=== PATIENT | male | born 1940 | race Caucasian/White ===

== ENCOUNTER → 2019-11-10 | Outpatient (CLI) | payer MEDICARE, BC ==
--- NOTE | 2019-11-10 12:57 | CT ---
EXAMINATION TYPE: CT abdomen pelvis w con DATE OF EXAM: 11/10/2019 COMPARISON: NONE HISTORY: 79-year-old male recent diagnosis of prostate CA TECHNIQUE: Contiguous axial scanning of the abdomen and pelvis following administration of 100 ml Iso angus 300 IV contrast. Delayed images through the kidneys and coronal/sagittal reconstructions perform ed. CT DLP: 1958 mGycm Automated exposure control for dose reduction was used. FINDINGS: Heart borderline enlarged without pericardial effusion. Scattered coronary artery calcifications are present. Dependent atelectasis in the visualized lung bases with mild emphysematous change. No pleural effusio n. Liver mildly enlarged at 19.2 cm. There may be underlying fatty infiltration. 4 hypodense hepatic les ions are present, the largest in the left liver lobe measure up to 2.1 cm and are compatible with cys ts. The other 2 are too small fracture at CT characterization but also likely represent cysts. Portal venous system is patent. No biliary ductal dilatation. Small 3.0 cm diverticulum projecting superior ly from the third portion of the duodenum into the pancreatic head region. Numerous small gallstones are seen layering in the collapsed gallbladder lumen. Mild diffuse thickening of the left adrenal gland without discrete nodularity. Spleen mildly enlarged at 14.7 cm as measured on axial series. Exophytic 6.1 cm left renal cyst. 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 1.2 cm cortical hypodensity medial upper pole right kidney too small for accurate CT characterization , likely cyst. Pancreas within normal limits. No dilated small bowel, free fluid, or free air. Small fatty periumbilical hernia. There is some focal soft tissue thickening at the ileocecal valve region, axial image 62 and 63, sagi ttal image 13, and coronal image 42. Direct visualization recommended to exclude neoplasm. Adjacent enlarged right lower quadrant mesenteric lymph node measuring 1.2 cm along with some cluster ed nonenlarged mesenteric lymph nodes. No retroperitoneal lymphadenopathy. Slightly redundant sigmoid colon. Left-sided clonic diverticulosis, greatest in the sigmoid colon. Ectatic infrarenal abdominal aorta and 2.8 cm an ectatic right and left common iliac arteries and 1.9 and 1.5 cm, respectively. Scattered [id number] atherosclerotic calcifications are present. Moderate circumferential bladder wall thickening. Prostate gland enlargement 5.7 mm wide. Patulous bi lateral inguinal canals. No abnormal fluid collection in the pelvis or pelvic lymphadenopathy. Bones: Mild degenerative changes at the hips and moderate degenerative disc disease and facet arthrop athy mid to lower lumbar spine. No osseous destructive process. No suspicious sclerotic lesion seen. IMPRESSION: 1. PROSTATOMEGALY OF 5.7 CM WIDE. KNOWN UNDERLYING PROSTATE CANCER IS NOT WELL DEMONSTRATED BY CT. 2. MODERATE CIRCUMFERENTIAL BLADDER WALL THICKENING COULD REPRESENT CHRONIC BLADDER WALL HYPERTROPHY OR CYSTITIS. CLINICALLY CORRELATE. 3. FOCAL SOFT TISSUE THICKENING AT THE ILEOCECAL VALVE REGION AND SOME CLUSTERED LYMPH NODES IN THE R IGHT LOWER QUADRANT MEASURING UP TO 1.2 CM. DIRECT VISUALIZATION RECOMMENDED TO EXCLUDE CECAL NEOPLAS M. A REGIONAL COLITIS WITH REACTIVE LYMPHADENOPATHY IS THE ALTERNATIVE CONSIDERATION. 4. OTHERWISE, NO SUSPICIOUS PELVIC OR RETROPERITONEAL LYMPHADENOPATHY TO SUGGEST METASTATIC PROSTATE CANCER. 5. INCIDENTAL: SIGMOID DIVERTICULOSIS, MILD HEPATOSPLENOMEGALY, CHOLELITHIASIS. COPD.
--- NOTE | 2019-11-10 21:27 | NM ---
EXAMINATION TYPE: NM bone scan whole body DATE OF EXAM: 11/10/2019 COMPARISON: Correlation CT same day HISTORY: 79-year-old male C61, prostate cancer TECHNIQUE: Delayed whole-body scanning was performed following the injection of 23 mCi Tc 99m MDP. I mages acquired 3 hours post injection. FINDINGS: Increased activity along the right lateral aspect of the mid lumbar spine seems to correspond to a pr ominent inferior endplate Schmorl's node of L3 vertebral body on CT. Increased activity along the right lateral margin at T12 seems to correspond to lateral bridging endp late spondylosis. A couple additional foci of activity along the posterior elements of the mid thoracic spine also be d egenerative in etiology. Degenerative activity at the sternoclavicular joints, bilateral first rib ends, and shoulders. IMPRESSION: 1. Increased activity along the right mid lumbar spine seems to correspond to a prominent endplate Sc hmorl's node. 2. Activity along the right lateral aspect of T12 seems to correspond to bridging lateral endplate sp ondylosis. 3. A couple foci of increased activity mid thoracic spine may also be on a degenerative basis but are indeterminate. Correlate as to the level of PSA elevation. If indicated, MRI thoracic spine with the addition of T1 in and out of phase sagittal sequence can be performed to further evaluate.
== END | disposition home or self-care (01) ==
LOC: RADNMMAIN 10:24
PROVIDERS: ATTEND Urology
DX: N40.0 Benign prostatic hyperplasia without lower urinary tract symptoms (principal); N32.89 Other specified disorders of bladder; M79.89 Other specified soft tissue disorders; K50.10 Crohn's disease of large intestine without complications; R59.1 Generalized enlarged lymph nodes; C61 Malignant neoplasm of prostate
CPT/HCPCS: 82565; 84520; 74177; 36415; 78306; A9503; Q9967

== ENCOUNTER → 2020-03-08 | Outpatient (CLI) | payer MEDICARE, BC ==
[2020-03-08 11:55] LABS: Basophils % (A) 1 %; Eosinophils # (A) 0.1 k/uL (0-0.7); Eosinophils % (A) 3 %; HCT 40.2 % (39.0-53.0); HGB 13.3 gm/dL (13.0-17.5); Lymphocytes # (A) 1.1 k/uL (1.0-4.8); Lymphocytes % (A) 23 %; MCH 31.5 pg (25.0-35.0); MCHC 33.2 g/dL (31.0-37.0); Mean Platelet Volume 7.9; Monocytes # (A) 0.4 k/uL (0-1.0); Monocytes % (A) 7 %; Neutrophils # (A) 3.2 k/uL (1.3-7.7); Neutrophils % (A) 64 %; Platelet Count 121 k/uL (150-450); RBC 4.23 m/uL (4.30-5.90); RDW 14.3 % (11.5-15.5)
[2020-03-08 12:03] LABS: Calcium 9.4 mg/dL (8.4-10.2); Potassium 4.6 mmol/L (3.5-5.1)
== END | disposition home or self-care (01) ==
LOC: LABPAT 10:21
PROVIDERS: ATTEND Urology
DX: Z01.812 Encounter for preprocedural laboratory examination (principal); C61 Malignant neoplasm of prostate
CPT/HCPCS: 36415; 80048; 85025

== ENCOUNTER 2020-03-14 09:38 | Day surgery (SDC) | payer MEDICARE, BC ==
[2020-03-08 16:10] VITALS: BMI 31.4
--- NOTE | 2020-03-13 18:13 | P.GSHP ---
History of Present Illness H&P Date: 03/13/20 Chief Complaint: Prostate cancer The patient is a 79-year-old male whose PSA has risen from 5.66 in 07/06 to 10.63 in 07/07 and most recently 14.1 in 09/08. TRUS with biopsies on 11/02/2019 showed a prostate volume of 65 cc. No palpable or sonographic abnormalities were noted. Prostate biopsies showed evidence of [place] score 4+3, 4+4 and 4+5 cancer in the right lobe and 3+4 and 4+4 cancer in the left lobe. Bone scan and 11/10/2019 showed no definite evidence of metastatic disease. CT scan of the abdomen and pelvis on the same day also showed no abnormality other than prostatic enlargement and some thickening in the region of the cecum. Subsequent colonoscopy showed no abnormality. Treatment options were reviewed with the patient including further observation and close follow-up versus a combination of androgen deprivation therapy and external beam radiation therapy. The patient has elected to proceed with a combination of androgen deprivation therapy and external beam radiation therapy for his clinical stage [id number] disease. He was started on Firmagon on 01/19/2020. The patient discussed SpaceOAR placement with Dr. Waldron to reduce the potential for rectal toxicity and the patient is admitted for placement of this. The patient has no history of gross hematuria or rectal bleeding. He usually voids every 2-4 hours during the day and once at night. He has no history of urinary tract infection. - Constitutional Constitutional: Denies chronic pain, Denies fever - EENT Ears, nose, mouth and throat: Reports vertigo - Cardiovascular Cardiovascular: Denies chest pain, Denies shortness of breath, Denies syncope - Respiratory Respiratory: Denies cough - Gastrointestinal Gastrointestinal: Denies abdominal pain, Denies diarrhea - Genitourinary (Male) Genitourinary: Reports as per HPI Past Medical History Past Medical History: COPD, GERD/Reflux, Hypertension, Mitral Valve Prolapse (MVP), Osteoarthritis (OA) Additional Past Medical History / Comment(s): Sleep apnea, history of mitral valve prolapse History of Any Multi-Drug Resistant Organisms: None Reported Past Surgical History: Appendectomy, Hernia Repair (Umbilical) Additional Past Surgical History / Comment(s): Gasper Cataract Removal Past Anesthesia/Blood Transfusion Reactions: No Reported Reaction Past Psychological History: No Psychological Hx Reported Smoking Status: Never smoker Past Alcohol Use History: None Reported Past Drug Use History: None Reported - Past Family History Mother Family Medical History: Cancer (Father with lung cancer, mother and aunt with colon cancer) Father Family Medical History: Cancer Sister(s) Family Medical History: Cancer Medications and Allergies Home Medications Medication Instructions Recorded Confirmed Type Albuterol Sulfate [Proair Hfa] 1 - 2 puff INHALATION Q6HR PRN 03/08/20 03/08/20 History Allopurinol [Zyloprim] 300 mg PO DIRECTED 03/08/20 03/08/20 History Aspirin [Adult Low Dose Aspirin EC] 81 mg PO QAM 03/08/20 03/08/20 History Ferrous Sulfate [Feosol] 325 mg PO DIRECTED 03/08/20 03/08/20 History Metoprolol Tartrate 25 mg PO QAM 03/08/20 03/08/20 History Minocycline [Minocin] 50 mg PO Q12HR 03/08/20 03/08/20 History Omeprazole 20 mg PO QAM 03/08/20 03/08/20 History Vit C/E/Zn/Coppr/Lutein/Zeaxan 1 each PO BID 03/08/20 03/08/20 History [Preservision Areds 2 Softgel] lisinopriL 20 mg PO QAM 03/08/20 03/08/20 History Allergies Allergy/AdvReac Type Severity Reaction Status Date / Time levofloxacin [From Levaquin] Allergy Confusion Verified 03/08/20 15:58 Surgical - Exam - General well developed, well nourished, no distress, obese - ENT no hearing loss - Neck no masses, no lymphadectomy - Respiratory normal respiratory effort - Abdomen Abdomen: soft, no organomegaly - Genitourinary normal penis with no external lesions, testicles non-tender - Rectum Rectum: normal sphincter tone, other (Prostate 2+ enlarged and benign to palpation) Assessment and Plan (1) Prostate cancer Narrative/Plan: The patient will undergo transperineal SpaceOAR placement under general anesthesia performed by . He is aware of the risks which include anesthesia, bleeding, infection and temporary difficulty voiding. Status: Acute Code(s): C61 - MALIGNANT NEOPLASM OF PROSTATE SNOMED Code(s): 212620886
[~2020-03-14 09:38] MED LIST: DEXAMETHASONE SOD PHOSPHATE 10 MG/ML 1 ML VIAL IV ONE; HYDROmorphone 0.5 MG/0.5 ML SYRINGE IVP PRN; LACTATED RINGERS 1,000 ML IV SCH; LIDOCAINE 1% (10MG/ML) FOR IV START INTRADERMA PRN; ONDANSETRON 4 MG/2 ML VIAL IVP ONE
[2020-03-14] MEDS ORDERED: METOPROLOL TARTRATE 25 MG TAB PO STA (10:59)
[2020-03-14] MEDS ORDERED: ONDANSETRON 4 MG/2 ML VIAL ONE (11:13)
[2020-03-14 11:19] VITALS: RESP 16
[2020-03-14] MEDS ORDERED: MIDAZOLAM 2 MG/2 ML VIAL ONE (12:09)
[2020-03-14] MEDS ORDERED: fentaNYL (PF) 50 MCG/ML 2 ML AMP ONE (12:09)
[2020-03-14] MEDS ORDERED: PROPOFOL 10 MG/ML 20 ML VIAL IV ONE (12:09)
[2020-03-14] MEDS ORDERED: LIDOCAINE 2% INJ 20 MG/ML SQ ONE (12:20)
[2020-03-14 12:49] VITALS: TEMP 97.2
--- NOTE | 2020-03-14 13:25 | P.OP ---
Date of Procedure: 03/14/20 Preoperative Diagnosis: Prostate cancer Postoperative Diagnosis: Same Procedure(s) Performed: SpaceOar Implant Anesthesia: MAC Surgeon: Jacob Vale Estimated Blood Loss (ml): 10 IV fluids (ml): 200 Pathology: none sent Condition: stable Disposition: PACU Indications for Procedure: The patient is a 79-year-old male whose PSA has risen from 5.66 in 07/06 to 10.63 in 07/07 and most recently 14.1 in 09/08. TRUS with biopsies on 11/02/2019 showed a prostate volume of 65 cc. No palpable or sonographic abnormalities were noted. Prostate biopsies showed evidence of [place] score 4+3, 4+4 and 4+5 cancer in the right lobe and 3+4 and 4+4 cancer in the left lobe. Bone scan and 11/10/2019 showed no definite evidence of metastatic disease. CT scan of the abdomen and pelvis on the same day also showed no abnormality other than prostatic enlargement and some thickening in the region of the cecum. Subsequent colonoscopy showed no abnormality. Treatment options were reviewed with the patient including further observation and close follow-up versus a c ombination of androgen deprivation therapy and external beam radiation therapy. The patient has elected to proceed with a combination of androgen deprivation therapy and external beam radiation therapy for his clinical stage [id number] disease. He was started on Firmagon on 01/19/2020. The patient discussed SpaceOAR placement with Dr. Waldron to reduce the potential for rectal toxicity and the patient is admitted for placement of this. Operative Findings: Excellent space created between prostate and rectum. Description of Procedure: The patient was taken to the operating room and placed in the dorsolithotomy position, with his legs supported in Rodriguez stirrups. The external genitalia was prepped and draped sterilely. The Bruel and Kjaer transrectal ultrasound probe was placed intrarectally. The prostate was imaged. The probe was then placed within the stabilizing stand. A spinal needle was advanced under ultrasonic guidance to the level of the urogenital diaphragm, and lidocaine was used to infiltrate the tissues as the needle was withdrawn. Next, the SpaceOAR needle was passed through the midline of the perineum, 1-2 cm anterior to the anal opening. The needle was slowly advanced under ultrasonic guidance until the needle tip was located within the fat plane between the prostate and rectum, at the level of the mid prostate gland. The needle was confirmed to be midline on the axial imaging. A small amount of normal saline was injected for hydrodissection. Next, the SpaceOAR components were mixed and loaded into the Y connector per protocol. The Y connector was then connected to the needle, and the components were injected slowly over a course of approximately 12 seconds. A total of 10 ml was injected. Significant distance was created between the prostate and rectum, as desired. It should be noted that at no point was there any concern of rectal perforation. The needle was withdrawn, as well as the transrectal ultrasound probe, and the procedure was terminated. The patient tolerated the procedure well and was taken to the recovery room in stable condition.
[2020-03-14 13:54] VITALS: BP 136/77; PULSE 63
== END 2020-03-14 14:04 | disposition home or self-care (01) ==
LOC: OR 09:38
PROVIDERS: ATTEND Urology
DX: C61 Malignant neoplasm of prostate (principal); N40.0 Benign prostatic hyperplasia without lower urinary tract symptoms; R42 Dizziness and giddiness; J44.9 Chronic obstructive pulmonary disease, unspecified; K21.9 Gastro-esophageal reflux disease without esophagitis; I34.1 Nonrheumatic mitral (valve) prolapse; I10 Essential (primary) hypertension; G47.33 Obstructive sleep apnea (adult) (pediatric); M19.90 Unspecified osteoarthritis, unspecified site; Z88.1 Allergy status to other antibiotic agents; Z90.49 Acquired absence of other specified parts of digestive tract; Z87.19 Personal history of other diseases of the digestive system; Z98.890 Other specified postprocedural states; Z98.41 Cataract extraction status, right eye; Z98.42 Cataract extraction status, left eye; Z80.1 Family history of malignant neoplasm of trachea, bronchus and lung; Z80.0 Family history of malignant neoplasm of digestive organs; Z80.9 Family history of malignant neoplasm, unspecified; Z79.899 Other long term (current) drug therapy; Z79.82 Long term (current) use of aspirin; Z97.2 Presence of dental prosthetic device (complete) (partial); Z99.89 Dependence on other enabling machines and devices
CPT/HCPCS: 55874; J2001; J2250; J1100; J0690; J2405; J3010; J2704

== ENCOUNTER 2022-01-24 11:19 | Day surgery (SDC) | payer MEDICARE, BC ==
[2022-01-21 12:20] VITALS: BMI 29.8
[~2022-01-24 11:19] MED LIST changes: -DEXAMETHASONE SOD PHOSPHATE 10 MG/ML 1 ML VIAL IV ONE; -HYDROmorphone 0.5 MG/0.5 ML SYRINGE IVP PRN; -ONDANSETRON 4 MG/2 ML VIAL IVP ONE
[2022-01-24 11:50] VITALS: TEMP 97.8
[2022-01-24] MEDS ORDERED: fentaNYL (PF) 50 MCG/ML 2 ML AMP ONE (12:28)
[2022-01-24] MEDS ORDERED: PROPOFOL 10 MG/ML 20 ML VIAL IV ONE (12:28)
[2022-01-24 13:20] VITALS: BP 132/68; PULSE 66; RESP 17
[2022-01-24 13:50] LABS: Anisocytosis Slight; Basophils % (A) 1 %; Eosinophils # (A) 0.1 k/uL (0-0.7); Eosinophils % (A) 2 %; HCT 33.2 % (39.0-53.0); HGB 11.1 gm/dL (13.0-17.5); Lymphocytes # (A) 0.6 k/uL (1.0-4.8); Lymphocytes % (A) 18 %; MCH 30.9 pg (25.0-35.0); MCHC 33.5 g/dL (31.0-37.0); MCV 92.3 fL (80.0-100.0); Mean Platelet Volume 8.7; Monocytes # (A) 0.3 k/uL (0-1.0); Monocytes % (A) 8 %; Neutrophils # (A) 2.4 k/uL (1.3-7.7); Neutrophils % (A) 70 %; RDW 16.9 % (11.5-15.5); Reticulocyte % 2.3 % (0.5-2.0); WBC 3.5 k/uL (3.8-10.6)
[2022-01-24 14:31] LABS: Platelet Count 76 k/uL (150-450)
--- NOTE | 2022-01-24 18:51 | PCN ---
PROCEDURE NOTE PROCEDURE: Bone marrow aspirate and biopsy. INDICATION: Pancytopenia. PROCEDURE DESCRIPTION: After obtaining consent from the patient, the procedure was performed in the endoscopy suite under general anesthesia performed by the anesthesia team. The patient was put on the left lateral decubital position and the right posterior superior iliac crest was localized. Skin was prepped with ChloraPrep. All sterile procedures were followed. About 2 mL of 2% xylocaine was used for local anesthetic. Monoject needle was inserted and 15 mL aspirate and about 1 cm core biopsy was obtained without any difficulties. Pressure was applied afterwards. There was negligible blood loss. Patient tolerated the procedure very well without any immediate complications. MMODL / IJN: [id number] /
== END 2022-01-24 13:40 | disposition home or self-care (01) ==
LOC: OR 11:19
PROVIDERS: ATTEND Internal Medicine Hematology & Oncology
DX: D61.818 Other pancytopenia (principal); Z85.46 Personal history of malignant neoplasm of prostate; I10 Essential (primary) hypertension; Z90.49 Acquired absence of other specified parts of digestive tract; Z97.2 Presence of dental prosthetic device (complete) (partial); Z98.890 Other specified postprocedural states; Z80.1 Family history of malignant neoplasm of trachea, bronchus and lung; Z80.6 Family history of leukemia; Z80.0 Family history of malignant neoplasm of digestive organs; Z86.19 Personal history of other infectious and parasitic diseases; I34.1 Nonrheumatic mitral (valve) prolapse; K21.9 Gastro-esophageal reflux disease without esophagitis; Z79.899 Other long term (current) drug therapy; Z88.1 Allergy status to other antibiotic agents
CPT/HCPCS: 85025; 85045; 38222; J3010; J2704